=== PATIENT | female | born 1940 | race Two or more races ===

== ENCOUNTER 2023-09-10 20:47 | Emergency (ER) | payer OTHER ==
[~2023-09-10] VITALS: Ht 167.6 cm; Wt 54.4 kg
[2023-09-10] MEDS ORDERED: LABETALOL HCL 20MG/4ML SYRINGE IV ONE (21:15)
[2023-09-10 22:01] LABS: HEMATOCRIT 44.3 % (36.0-45.00); HEMOGLOBIN 15.2 g/dL (12.0-15.00); MEAN CELL VOLUME 91.4 fL (80.00-100.00); MEAN CORPUSCULAR HEMOGLOBIN 31.2 pg (27.00-32.0); MEAN CORPUSCULAR HGB CONC 34.2 g/dl (32.0-36.0); PLATELET COUNT 285 K/uL (150-450); RED BLOOD COUNT 4.85 M/uL (4.00-6.00); RED CELL DISTRIBUTION WIDTH 14.5 % (11.5-14.5)
[2023-09-10 22:12] LABS: INR 1.04; PROTHROMBIN TIME 10.9 SECONDS (9.0-11.5)
[2023-09-10 22:17] LABS: ALBUMIN 4.6 gm/dL (3.4-5.0); BILIRUBIN TOTAL 0.72 mg/dL (0.3-1.2); CALCIUM 9.9 mg/dL (8.5-10.1); CREATININE SERUM 0.87 mg/dL (0.55-1.02); GFR 62.49; POTASSIUM 3.71 mEq/L (3.5-5.1); TOTAL PROTEIN 8.6 gm/dL (6.4-8.2)
[2023-09-10] MEDS ORDERED: VENLAFAXINE H37.5 M1 PO (22:35)
[2023-09-10] MEDS ORDERED: SYNTHROID50 MCG PO (22:35)
[2023-09-10 23:25] LABS: PH,URINE 7.5 (5.0-8.0); URINE APPEARANCE Clear; URINE BILIRRUBIN Negative (NEGATIVE); URINE COLOR Yellow; URINE GLUCOSE Negative (NEGATIVE); URINE LEUKOCYTE Small; URINE NITRATE Negative; URINE PROTEIN Negative (NEGATIVE); URINE UROBILINOGEN 0.2 E.U./dl
[2023-09-10 23:29] LABS: URINE BACTERIA 42.7 uL (0.0-1933); URINE EPITHELIAL CELLS 6.7 uL (0.0-38.8); URINE WBC 60.7 uL (0.0-23.2)
[2023-09-10 23:35] LABS: URINE BLOOD TRACE
[2023-09-11] MEDS ORDERED: LABETALOL HCL 20MG/4ML SYRINGE IV STA (05:24)
[2023-09-11] MEDS ORDERED: AMLODIPINE BESYLATE 2.5 MG TABLET PO SCH (11:36)
[2023-09-11] MEDS ORDERED: LOSARTAN POTASSIUM 25 MG TABLET PO SCH (11:36)
== END 2023-09-11 22:11 | disposition home or self-care (01) ==
LOC: ER 20:47
PROVIDERS: General Practice
DX: I16.9 Hypertensive crisis, unspecified (principal)